=== PATIENT | female | born 1950 | race Asian ===

== ENCOUNTER 2016-03-24 03:17 | Emergency (ER) | payer BC ==
[~2016-03-24] VITALS: Ht 157.5 cm; Wt 53.6 kg
[2016-03-24] MEDS ORDERED: morphine 4 MG/ML VIAL IV STA (03:20)
[2016-03-24] MEDS ORDERED: FAMOTIDINE 20 MG INJ IV STA (03:20)
[2016-03-24] MEDS ORDERED: SOD CHLORIDE 0.9% 1,000 ML IV STA (03:20)
[2016-03-24] MEDS ORDERED: ONDANSETRON 4 MG INJ IV STA (03:20)
[2016-03-24 03:21] VITALS: Ht 157.5 cm; Wt 53.6 kg
[2016-03-24] MEDS ORDERED: LORAZEPAM 2 MG INJ IV ONE (03:30)
[2016-03-24 03:50] LABS: BASOPHILS % 0.3 % (0.0-2.0); EOSINOPHILS % 0.5 % (0.0-7.0); HEMATOCRIT 38.8 % (37.0-47.0); HEMOGLOBIN 13.7 g/dl (12.0-16.0); LYMPHOCYTES # 2.7 10^3/ul (0.8-2.9); LYMPHOCYTES % 29.7 % (15.0-51.0); MEAN CORPUSCULAR HEMOGLOBIN 30.5 pg (29.0-33.0); MEAN CORPUSCULAR HGB CONC 35.3 g/dl (32.0-37.0); MEAN CORPUSCULAR VOLUME 86.5 fl (82.0-101.0); MEAN PLATELET VOLUME 8.1 fl (7.4-10.4); MONOCYTES % 10.5 % (0.0-11.0); NEUTROPHIL # 5.3 10^3/ul (1.6-7.5); PLATELET COUNT 253 10^3/UL (140-440); RED BLOOD COUNT 4.49 10^6/ul (4.20-5.40); RED CELL DISTRIBUTION WIDTH 13.4 % (11.5-14.5)
[2016-03-24 03:51] LABS: CONDITION 1
--- NOTE | 2016-03-24 03:57 | RADRPT ---
PROCEDURE: CHEST - 1 VIEW CLINICAL INDICATION: 66-year-old female with chest pain and flu-like symptoms. TECHNIQUE: A single frontal AP view of the chest was performed portably. The images were reviewed on a PACS workstation. COMPARISON: None. FINDINGS: The cardiomediastinal silhouette is within normal limits. The left lung apex is incompletely visual ized. There is no evidence for an infiltrate. There is no evidence for congestive heart failure. T here is no evidence for pneumothorax. The osseous structures are intact. IMPRESSION: No evidence for active cardiopulmonary disease. .Marcos Greenfield MD, MD Date Time Electronically viewed and signed by .Marcos Greenfield MD, on 03/24/2016 03:57 .Nicolasa/
[2016-03-24 04:13] LABS: ALBUMIN 4.2 g/dl (3.3-4.9)
[2016-03-24 04:14] LABS: POTASSIUM 3.7 mmol/L (3.5-5.1)
[2016-03-24 04:15] LABS: CREATININE 0.78 mg/dl (0.44-1.00)
[2016-03-24 04:16] LABS: ALBUMIN/GLOBULIN RATIO 1.07; BILIRUBIN,INDIRECT 0.4 mg/dl (0-1.1); BILIRUBIN,TOTAL 0.4 mg/dl (0.2-1.3); CALCIUM 9.7 mg/dl (8.4-10.2); TOTAL PROTEIN 8.1 g/dl (6.1-8.1)
--- NOTE | 2016-03-24 04:26 | ERD ---
ER Documentation Chief Complaint Date/Time DATE: 03/24/16 TIME: 04:24 Chief Complaint epigastric pain HPI This is a 66-year-old female who presents to the emergency room for evaluation of abdominal pain, nausea and vomiting. The patient states that she has had these symptoms since November. She states that she is seen multiple urgent cares and has been put on antibiotics. The patient states that she came to the ER today because she has had these symptoms for multiple months and wanted to be evaluated. This patient could not give a detailed history due to her anxiety ROS All systems reviewed and are negative except as per history of present illness. Allergies Allergies: Coded Allergies: aspirin (Verified Allergy, 09/03/11) PMhx/Soc Medical and Surgical Hx: pt denies Surgical Hx History of Surgery: No Anesthesia Reaction: No Hx Neurological Disorder: No Hx Respiratory Disorders: No Hx Cardiac Disorders: No Hx Psychiatric Problems: No Hx Miscellaneous Medical Probl: No (post nasal drip) Hx Alcohol Use: No Hx Substance Use: No Hx Tobacco Use: No Smoking Status: Never smoker Physical Exam Vitals Vital Signs Date Time Temp Pulse Resp B/P Pulse Ox O2 Delivery O2 Flow Rate FiO2 03/24/16 04:17 76 19 103/66 99 Nasal Cannula 3.0 03/24/16 03:46 71 20 131/82 100 Room Air 03/24/16 03:21 98.3 87 18 162/67 99 Physical Exam INITIAL VITAL SIGNS: Reviewed by me GENERAL: The patient is well developed and appropriate for usual state of health in no apparent distress HEENT: Dry mucous membranes, pupils equal, round, and reactive to light. EOMI. There is no scleral icterus. NECK: C-spine is soft and supple, there is no meningismus. There is no cervical lymphadenopathy. LUNGS: Clear to auscultation bilaterally. There are no rales, wheezes or rhonchi. HEART: Regular rate and rhythm, no murmurs, clicks, rubs or gallops. ABDOMEN: Soft, non-tender, non-distended. There are bowel sounds in all four quadrants. No rebound or guarding. EXTREMITIES: There is no peripheral cyanosis or edema. No focal swelling or erythema. NEUROLOGICAL: The patient moves all four extremities with 5/5 strength. Cranial nerves II - XII are intact. Normal gait. Alert and oriented SKIN: There is no apparent rash or petechiae. HEME/LYMPHATIC: There is no evidence of excessive bruising or lymphedema. PSYCHIATRIC: The patient does appear to be extremely anxious Result Diagram: 03/24/16 0330 03/24/16 0330 Results 24 hrs Laboratory Tests Test 03/24/16 03:30 Alanine Aminotransferase (ALT/SGPT) 23IU/L Albumin 4.2g/dl Albumin/Globulin Ratio 1.07 Alkaline Phosphatase 83IU/L Anion Gap 19 Aspartate Amino Transf (AST/SGOT) 36IU/L Basophils # 0.010^3/ul Basophils % 0.3% Blood Urea Nitrogen 17mg/dl Calcium Level 9.7mg/dl Carbon Dioxide Level 22mmol/L Chloride Level 108mmol/L Creatinine 0.78mg/dl Direct Bilirubin 0.00mg/dl Eosinophils # 0.010^3/ul Eosinophils % 0.5% Globulin 3.90g/dl Glucose Level 95mg/dl Hematocrit 38.8% Hemoglobin 13.7g/dl Indirect Bilirubin 0.4mg/dl Lipase 138U/L Lymphocytes # 2.710^3/ul Lymphocytes % 29.7% Mean Corpuscular Hemoglobin 30.5pg Mean Corpuscular Hemoglobin Concent 35.3g/dl Mean Corpuscular Volume 86.5fl Mean Platelet Volume 8.1fl Monocytes # 1.010^3/ul Monocytes % 10.5% Neutrophils # 5.310^3/ul Neutrophils % 59.0% Nucleated Red Blood Cells # 0.010^3/ul Nucleated Red Blood Cells % 0.0/100WBC Platelet Count 84097^3/UL Potassium Level 3.7mmol/L Red Blood Count 4.4910^6/ul Red Cell Distribution Width 13.4% Sodium Level 145mmol/L Total Bilirubin 0.4mg/dl Total Protein 8.1g/dl White Blood Count 9.010^3/ul Current Medications Medications (Trade) Dose Ordered Sig/Cora Route PRN Reason Start Time Stop Time Status Last Admin Dose Admin Sodium Chloride (NS) 1,000 ml @ 1,000 mls/hr Q1H STAT IV 03/24/16 03:20 03/24/16 04:19 DC 03/24/16 03:40 Morphine Sulfate (morphine) 4 mg ONCE STAT IV 03/24/16 03:20 03/24/16 03:22 DC 03/24/16 03:40 Ondansetron HCl (Zofran Inj) 4 mg ONCE STAT IV 03/24/16 03:20 03/24/16 03:22 DC 03/24/16 03:40 Famotidine (Pepcid Iv) 20 mg ONCE STAT IV 03/24/16 03:20 03/24/16 03:22 DC 03/24/16 03:40 Lorazepam (Ativan) 1 mg ONCE ONCE IV 03/24/16 03:30 03/24/16 03:31 DC 03/24/16 03:41 Procedures/MDM EKG: Rate/Rhythm: [Normal Sinus Rhythm] QRS, ST, T-waves: [No changes consistent w/ acute ischemia] Impression: [No evidence of ischemia or arrhythmia] Chest X-ray 1V Interpreted by me: Soft Tissue: No acute abnormalities Bones: No acute abnormalities Mediastinum/Cardiac Silhouette/Lungs: [No acute abnormalities] This is a 66-year-old female who presents to the emergency room for evaluation of abdominal pain. She states she has had abdominal pain since November, she is passing gas normally, and using the restroom normally. She was nauseous and vomited at home today. She states she came to the ER today for evaluation. This patient was extremely anxious on my examination. I did obtain lab work which does not show any acute abnormalities. The patient's pain is controlled with morphine. She was given 1 mg of Ativan for anxiety. The patient has not vomited since being in the emergency room. Her EKG is nonischemic, troponin is normal, chest x-ray is normal. The patient will be discharged home at this time with a prescription for Zofran and referral for gastroenterology for possible EGD for evaluation of constant epigastric abdominal pain Departure Diagnosis: Primary Impression: Abdominal pain Additional Impression: Anxiety Condition: Stable ARISTEO ORANTES DO Mar 24, 2016 04:26
[2016-03-24] MEDS ORDERED: FAMO-18 PO (04:27)
[2016-03-24] MEDS ORDERED: ONDA4TAB8 PO (04:27)
[2016-03-24 04:56] VITALS: BP 108/69; PULSE 74; RESP 16
== END 2016-03-24 05:10 | disposition home or self-care (01) ==
LOC: E/R 03:17
DX: R10.13 Epigastric pain (principal); F41.9 Anxiety disorder, unspecified; R11.2 Nausea with vomiting, unspecified; R40.2142 Coma scale, eyes open, spontaneous, at arrival to emergency department; R40.2252 Coma scale, best verbal response, oriented, at arrival to emergency department; R40.2362 Coma scale, best motor response, obeys commands, at arrival to emergency department
CPT/HCPCS: 36415; 71010; 80053; 83690; 84484; 85025; 96361; 96374; 96375; 99285; J2060; J2270; J2405; J7030; 93005

== ENCOUNTER 2016-12-11 00:24 | Inpatient (IN) | payer BC ==
[~2016-12-11] VITALS: Ht 154.9 cm; Wt 50.0 kg
[~2016-12-11 00:24] MED LIST: FAMO-96 PO; ONDA4TAB8 PO
[2016-12-11] MEDS ORDERED: morphine 4 MG/ML VIAL IV STA ×2 (01:24→02:48)
[2016-12-11] MEDS ORDERED: FAMOTIDINE 20 MG INJ IV STA (01:24)
[2016-12-11] MEDS ORDERED: METOCLOPRAMIDE 10 MG INJ IV STA (01:24)
[2016-12-11] MEDS ORDERED: SOD CHLORIDE 0.9% 1,000 ML IV STA (01:24)
[2016-12-11 01:36] LABS: BASOPHIL # 0.1 10^3/ul (0.0-0.1); BASOPHILS % 0.7 % (0.0-2.0); EOSINOPHILS # 0.1 10^3/ul (0.0-0.5); EOSINOPHILS % 1.7 % (0.0-7.0); HEMOGLOBIN 12.6 g/dl (12.0-16.0); LYMPHOCYTES # 2.8 10^3/ul (0.8-2.9); LYMPHOCYTES % 33.3 % (15.0-51.0); MEAN CORPUSCULAR HEMOGLOBIN 30.4 pg (29.0-33.0); MEAN CORPUSCULAR HGB CONC 34.1 g/dl (32.0-37.0); MEAN CORPUSCULAR VOLUME 89.4 fl (82.0-101.0); MEAN PLATELET VOLUME 10.3 fl (7.4-10.4); MONOCYTE # 0.7 10^3/ul (0.3-0.9); MONOCYTES % 8.2 % (0.0-11.0); NEUTROPHIL # 4.6 10^3/ul (1.6-7.5); NEUTROPHILS % 55.9 % (39.0-77.0); PLATELET COUNT 196 10^3/UL (140-415); RED BLOOD COUNT 4.14 10^6/ul (4.20-5.40); RED CELL DISTRIBUTION WIDTH 13.2 % (11.5-14.5); WHITE BLOOD COUNT 8.3 10^3/ul (4.8-10.8)
[2016-12-11 01:57] LABS: ALANINE AMINOTRANSFERASE 38 IU/L (13-69); ALBUMIN 4.4 g/dl (3.3-4.9); ALBUMIN/GLOBULIN RATIO 1.37; ALKALINE PHOSPHATASE 75 IU/L (42-121); ANION GAP 14 (8-16); ASPARTATE AMINO TRANSFERASE 25 IU/L (15-46); BILIRUBIN,INDIRECT 0.3 mg/dl (0-1.1); BILIRUBIN,TOTAL 0.3 mg/dl (0.2-1.3); BLOOD UREA NITROGEN 23 mg/dl (7-20); CALCIUM 9.7 mg/dl (8.4-10.2); CARBON DIOXIDE 25 mmol/L (21-31); CHLORIDE 108 mmol/L (97-110); CREATININE 0.93 mg/dl (0.44-1.00); GLUCOSE 96 mg/dl (70-220); POTASSIUM 3.7 mmol/L (3.5-5.1); SODIUM 143 mmol/L (135-144); TOTAL PROTEIN 7.6 g/dl (6.1-8.1)
[2016-12-11 02:09] LABS: TROPONIN-I < 0.012 ng/ml (0.00-0.12)
[2016-12-11] MEDS ORDERED: CLIN-73 PO (02:30)
[2016-12-11] MEDS ORDERED: IBUP800T25 PO (02:32)
[2016-12-11] MEDS ORDERED: IBUP200C PO (02:32)
[2016-12-11] MEDS ORDERED: ONDANSETRON 4 MG INJ IV STA (02:48)
[2016-12-11] MEDS ORDERED: LIDOCAINE/MYLANTA 40 ML BTL PO STA (03:03)
[2016-12-11] MEDS ORDERED: LIDOCAINE/MYLANTA 40 ML BTL ONE (03:04)
--- NOTE | 2016-12-11 04:18 | RADRPT ---
PROCEDURE: XR Chest. CLINICAL INDICATION: Chest pain. TECHNIQUE: AP Portable chest. COMPARISON: 03/24/2016 FINDINGS: The cardiomediastinal silhouette is normal.The aortic arch is calcified. No focal consolidation, ple ural effusion or pneumothorax is seen. There is mild thoracic dextroscoliosis. IMPRESSION: No radiographic evidence of acute cardiopulmonary disease. Physician Fernando Date Time Electronically viewed and signed by Aneudy Mancini Physician on 12/11/2016 04:17 CHAPO/
--- NOTE | 2016-12-11 04:28 | RADRPT ---
PROCEDURE: CT of the abdomen and pelvis without contrast CLINICAL INDICATION: Abdominal pain TECHNIQUE: Spiral CT images through the abdomen and pelvis without the use of contrast. The admin istered radiation dose is CTDI 6.19 mGy and DLP 335.94 mGy*cm. Coronal and sagittal reformatted larry ges were submitted. One or more of the following dose reduction techniques were used: automated exp osure control, adjustment of the mA and/or kV according to patient size, or use of iterative reconst ruction technique. COMPARISON: None FINDINGS: Lack of oral and intravenous contrast somewhat limits evaluation. There is mild dependent atelect asis. No pleural or pericardial effusion is seen. Small hiatal hernia is visualized.. The liver, spleen, adrenal glands and pancreas are normal in appearance. There is no evidence of cho lelithiasis or biliary ductal dilatation.. The kidneys are normal in size and contour. There is no evidence of hydronephrosis or nephrolithiasis. Parapelvic left renal cyst is seen. The aorta is norm al in caliber.. There is no evidence for bowel obstruction, free air, or abscess. The appendix is normal in appearance. there is abundant stool in the colon. No adenopathy or ascites is seen. The u terus is atrophic. There are calcified uterine leiomyomas. The bladder is distended. There are dege nerative changes in the spine, severe L5-S1. IMPRESSION: No definite acute abnormality of the abdomen or pelvis. Fecal filled colon. Atrophic uterus with calcified leiomyomas. RPTAT: HCNS Physician Fernando Date Time Electronically viewed and signed by Physician Fernando on 12/11/2016 04:27 /
--- NOTE | 2016-12-11 05:31 | ERD ---
ER Documentation Chief Complaint Date/Time DATE: 12/11/16 TIME: 05:31 Chief Complaint BIBA [id number],c/o dizziness, abd sharp pain HPI 66-year-old female with No significant medical history presenting with complaints of epigastric pain that started last night. The pain is described as sharp, nonradiating, 9 out of 10, associated with nausea and dizziness. She denies associated headache, vision disturbance, focal weakness or numbness. No fevers or chills. No dysuria. She does report recently being seen 1 week ago at an outside hospital for sore throat. They told her to take Advil which she has been taking daily as well as clindamycin which she was prescribed. She denies any hematemesis, hematochezia, or melena. ROS All systems reviewed and are negative except as per history of present illness. Medications Home Meds Active Scripts Famotidine* (Pepcid*) 20 Mg Tablet, 20 MG PO BID for 4 Days, TAB Prov:JOSI TEAGUE MD 12/11/16 Metoclopramide* (Reglan*) 10 Mg Tablet, 10 MG PO Q6 Y for NAUSEA AND/OR VOMITING , #10 TAB Prov:JOSI TEAGUE MD 12/11/16 Ondansetron Hcl* (Zofran*) 4 Mg Tablet, 4 MG PO Q8H Y for NAUSEA AND/OR VOMITING , #15 TAB Prov:ARISTEO ORANTES DO 03/24/16 Reported Medications Clindamycin Hcl* (Clindamycin Hcl*) 300 Mg Capsule, 300 MG PO Q6, CAP 12/11/16 Discontinued Reported Medications Ibuprofen* (Ibuprofen*) 800 Mg Tab, 800 MG PO TID, TAB 12/11/16 Ibuprofen* (Ibuprofen*) 200 Mg Capsule, 200 MG PO QID Y for PAIN, CAP 12/11/16 Discontinued Scripts Famotidine* (Pepcid*) 20 Mg Tablet, 20 MG PO BID for 10 Days, TAB Prov:ARISTEO ORANTES DO 03/24/16 Allergies Allergies: Coded Allergies: No Known Allergy (Unverified , 12/11/16) PMhx/Soc Medical and Surgical Hx: pt denies Medical Hx History of Surgery: No Anesthesia Reaction: No Hx Neurological Disorder: No Hx Respiratory Disorders: No Hx Cardiac Disorders: No Hx Psychiatric Problems: No Hx Miscellaneous Medical Probl: No (post nasal drip) Hx Alcohol Use: No Hx Substance Use: No Hx Tobacco Use: No Smoking Status: Never smoker FmHx Family History: No diabetes Physical Exam Vitals Vital Signs Date Time Temp Pulse Resp B/P Pulse Ox O2 Delivery O2 Flow Rate FiO2 12/11/16 01:05 97.0 85 18 115/64 100 Room Air 12/11/16 00:37 97.0 86 18 127/69 100 Physical Exam Const: Appears to be in distress secondary to pain, nontoxic, well-developed and nourished Head: Atraumatic Eyes: Normal Conjunctiva, PERRLA, EOMI, no nystagmus ENT: Normal External Ears, Nose and Mouth. Neck: Full range of motion..~ No meningismus. Resp: Clear to auscultation bilaterally Cardio: Regular rate and rhythm, no murmurs. 2+ distal pulses. Abd: Soft,Mild epigastric tenderness to palpation, negative Byrne sign, non distended. Normal bowel sounds Skin: No petechiae or rashes Back: No midline or flank tenderness Ext: No cyanosis, or edema Neur: Awake and alert, Oriented 3, cranial nerves intact, strength and sensation is intact in all 4 extremities Psych: Normal Mood and Affect Result Diagram: 12/11/1610212/11/16102 Results 24 hrs Laboratory Tests Test 12/11/16 01:03 White Blood Count 8.310^3/ul Red Blood Count 4.1410^6/ul Hemoglobin 12.6g/dl Hematocrit 37.0% Mean Corpuscular Volume 89.4fl Mean Corpuscular Hemoglobin 30.4pg Mean Corpuscular Hemoglobin Concent 34.1g/dl Red Cell Distribution Width 13.2% Platelet Count 33815^3/UL Mean Platelet Volume 10.3fl Neutrophils % 55.9% Lymphocytes % 33.3% Monocytes % 8.2% Eosinophils % 1.7% Basophils % 0.7% Nucleated Red Blood Cells % 0.0/100WBC Neutrophils # 4.610^3/ul Lymphocytes # 2.810^3/ul Monocytes # 0.710^3/ul Eosinophils # 0.110^3/ul Basophils # 0.110^3/ul Nucleated Red Blood Cells # 0.010^3/ul Sodium Level 143mmol/L Potassium Level 3.7mmol/L Chloride Level 108mmol/L Carbon Dioxide Level 25mmol/L Anion Gap 14 Blood Urea Nitrogen 23mg/dl Creatinine 0.93mg/dl Glucose Level 96mg/dl Calcium Level 9.7mg/dl Total Bilirubin 0.3mg/dl Direct Bilirubin 0.00mg/dl Indirect Bilirubin 0.3mg/dl Aspartate Amino Transf (AST/SGOT) 25IU/L Alanine Aminotransferase (ALT/SGPT) 38IU/L Alkaline Phosphatase 75IU/L Troponin I < 0.012ng/ml Total Protein 7.6g/dl Albumin 4.4g/dl Globulin 3.20g/dl Albumin/Globulin Ratio 1.37 Lipase 144U/L Current Medications Medications (Trade) Dose Ordered Sig/Cora Route PRN Reason Start Time Stop Time Status Last Admin Dose Admin Sodium Chloride (NS) 1,000 ml @ 1,000 mls/hr Q1H STAT IV 12/11/16 01:24 12/11/16 02:23 DC 12/11/16 01:49 Morphine Sulfate (morphine) 4 mg ONCE STAT IV 12/11/16 01:24 12/11/16 01:26 DC 12/11/16 01:49 Metoclopramide HCl (Reglan) 10 mg ONCE STAT IV 12/11/16 01:24 12/11/16 01:26 DC 12/11/16 01:49 Famotidine (Pepcid Iv) 20 mg ONCE STAT IV 12/11/16 01:24 12/11/16 01:26 DC 12/11/16 01:49 Morphine Sulfate (morphine) 4 mg ONCE STAT IV 12/11/16 02:48 12/11/16 02:50 DC 12/11/16 02:55 Ondansetron HCl (Zofran Inj) 4 mg ONCE STAT IV 12/11/16 02:48 12/11/16 02:50 DC 12/11/16 02:55 Miscellaneous Medication (Gi Cocktail (2)) 40 ml ONCE STAT PO 12/11/16 03:03 12/11/16 03:04 DC 12/11/16 03:06 Miscellaneous Medication (Gi Cocktail (2)) 40 ml STK-MED ONCE .ROUTE 12/11/16 03:04 12/11/16 03:05 DC Procedures/MDM EKG: Rate/Rhythm: [Normal Sinus Rhythm] QRS, ST, T-waves: [No changes consistent w/ acute ischemia] Impression: [No evidence of ischemia or arrhythmia] Labs: CBC: unremarkable CMP: Mild elevation in BUN, otherwise unremarkable Lipase: unremarkable Trop wnl Imaging Chest x-ray shows no acute abnormalities CT abdomen and pelvis: IMPRESSION: No definite acute abnormality of the abdomen or pelvis. Fecal filled colon. Atrophic uterus with calcified leiomyomas. Physician Fernando Date Time Electronically viewed and signed by Physician Fernando on 12/11/2016 04: 27 MDM Differential includes but is not limited to biliary colic, biliary obstruction, acute cholecystitis, pancreatitis, hepatitis, lower lobe pneumonia, gastritis, colitis, cardiac pathology, aortic dissection, ureterolithiasis, pyelonephritis. Labs were ordered to evaluate for above and were unremarkable. Chest Xray ordered to evaluate for pneumonia and was read as normal by radiology. CT of the abdomen/pelvis was ordered and showed no acute pathology. I have a low suspicion for aortic dissection or acute coronary syndrome. There is no evidence of perforated viscus. The etiology of her abdominal pain is unclear at this time. I suspect it may be due to the Advil and antibiotic use for the past week. I did review her medical records and it seems like she has been here multiple times in the past for similar pain. She was told to follow-up for an endoscopy with her primary care doctor, but it does not seem like the patient has done this. I have given the patient IV fluids and multiple doses of pain medications and antiemetics with minimal relief. She was p.o. challenged and had persistent vomiting. At this time I do not think the patient is stable for discharge and will require observation for treatment of her symptoms until she is able to tolerate fluids by mouth. Accepting Care Team: Current data and ongoing care discussed. Time: Time of admission Primary Provider: Ramana Consulting: None Outstanding Data: none Departure Diagnosis: Primary Impression: Epigastric abdominal pain Additional Impressions: Dizziness Intractable abdominal pain Condition: Stable EKJOSI MARMOLEJO MD Dec 11, 2016 05:31
[2016-12-11] MEDS ORDERED: FAMO-96 PO (05:33)
[2016-12-11] MEDS ORDERED: METO10TA92 PO (05:33)
[2016-12-11] MEDS ORDERED: ACETAMINOPHEN 325 MG TAB PO PRN ×2 (06:30→09:30)
[2016-12-11] MEDS ORDERED: ONDANSETRON 4 MG INJ IV PRN (06:30)
[2016-12-11 08:01] VITALS: TEMP 98.1
[2016-12-11 08:25] VITALS: BP 119/61; RESP 18
[2016-12-11] MEDS ORDERED: DOCUSATE SODIUM 100 MG CAP PO PRN (09:30)
[2016-12-11] MEDS ORDERED: NACL 0.9% 3 ML SYG IV SCH (09:30)
[2016-12-11] MEDS ORDERED: ONDANSETRON 4 MG TAB PO PRN ×2 (09:30)
[2016-12-11] MEDS ORDERED: MAGNESIUM HYDROXIDE 30ML CUP PO PRN (09:30)
[2016-12-11] MEDS ORDERED: BISACODYL 10 MG SUPP PR PRN (09:30)
[2016-12-11] MEDS ORDERED: HYDROCODONE/APAP (5/325) TAB PO PRN (09:30)
[2016-12-11] MEDS ORDERED: BISACODYL (EC) 5 MG TAB PO PRN (09:30)
[2016-12-11] MEDS ORDERED: METOCLOPRAMIDE 10 MG TAB PO PRN (10:00)
[2016-12-11] MEDS: morphine 2 MG INJ IV PRN ×3 (10:25→20:58)
[2016-12-11 10:37] VITALS: Ht 154.9 cm; Wt 50.0 kg
[2016-12-11] MEDS: ONDANSETRON 4 MG INJ IV PRN ×2 (11:27→20:43)
[2016-12-11 14:15] VITALS: BP 126/59; RESP 16
[2016-12-11] MEDS: METOCLOPRAMIDE 10 MG INJ IV PRN (14:17)
[2016-12-11] MEDS: SOD CHLORIDE 0.9% 1,000 ML IV SCH (14:25)
--- NOTE | 2016-12-11 15:26 | HP ---
Date/Time of Note Date/Time of Note DATE: 12/11/16 TIME: 15:19 Assessment/Plan VTE Prophylaxis VTE Prophylaxis Intervention: SCD's Lines/Catheters IV Catheter Type (from Nrsg): Saline Lock Urinary Cath still in place: No Assessment/Plan Assessment/Plan 66 yo F with chronic abd pain, ?h/o gastric ulcers? here for abd pain. Suspect gastric pathology-->etio unclear. PLAN GI eval for EGD start PPI HPI/ROS Admit Date/Time Admit Date/Time Dec 11, 2016 at 13:00 Hx of Present Illness CC abd pain x 30 years HPI 66 yo F with pmhx chronic abd pain 2/2 "ulcers from stress" presents with abd pain and dizziness. Pt reports extensive hx of chronic abd pain. States she has seen GIs previously and been diagnosis with stomach ulcers/erosions. Takes PPI PRN. Last week had a sore throat and went to an [facility] where she was given NSAIDs, abx and nasal spray. Took a few days off working out then attempted to exercise yesterday. After spending some time with a swimming machine reports she felt lightheaded. 10p ROS neg except as per HPI PMHx: chronic abd pain PMH/Family/Social Social History lives in the community, employed Smoking Status: Never smoker Exam/Review of Systems Vital Signs Vitals Vital Signs Date Time Temp Pulse Resp B/P Pulse Ox O2 Delivery O2 Flow Rate FiO2 12/11/16 14:15 98.0 63 16 126/59 99 12/11/16 08:01 Room Air Exam Exam anxious MMM EOMI no mrg lungs clear abd soft no rashes no edema hbg 12s Additional Comments imaging results reviewed Labs Result Diagram: 12/11/1610212/11/16102 Medications Medications Current Medications Metoclopramide HCl (Reglan) 10 mg Q6H PRN PO NAUSEA AND/OR VOMITING; Start at 10:00 Ondansetron HCl (Zofran Tab) 4 mg Q6H PRN PO NAUSEA AND/OR VOMITING; Start at 09:30 Ondansetron HCl (Zofran Inj) 4 mg Q6H PRN IV NAUSEA AND/OR VOMITING Last administered on 12/11/16t 11:27; Admin Dose 4 MG; Start 12/11/16 at 09:30 Metoclopramide HCl (Reglan) 10 mg Q6H PRN IV NAUSEA AND/OR VOMITING Last administered on 12/11/16 14:17; Admin Dose 10 MG; Start 12/11/16 at 09:30 Acetaminophen (Tylenol Tab) 650 mg Q6H PRN PO PAIN LEVEL 1-3 OR FEVER; Start 12/11/16 at 09:30 Acetaminophen/ Hydrocodone Bitart ([place] (5/325)) 1 tab Q6H PRN PO MODERATE PAIN LEVEL 4-6; Start 12/11/16 at 09:30 Morphine Sulfate (morphine) 2 mg Q4H PRN IV SEVERE PAIN LEVEL 7-10 Last administered on 12/11/16 10:25; Admin Dose 2 MG; Start 12/11/16 at 09:30 Docusate Sodium (Colace) 100 mg Q12H PRN PO CONSTIPATION; Start 12/11/16 at 09 :30 Magnesium Hydroxide (Milk Of Mag) 30 ml DAILY PRN PO CONSTIPATION; Start 12/11 at 09:30 Bisacodyl (Dulcolax) 5 mg DAILY PRN PO CONSTIPATION; Start 12/11/16 at 09:30 Bisacodyl 10 mg 10 mg DAILY PRN LA CONSTIPATION; Start 12/11/16 at 09:30 Sodium Chloride (NS) 1,000 ml @ 50 mls/hr Q20H IV Last administered on 14:25; Admin Dose 50 MLS/HR; Start 12/11/16 at 14:30 Simethicone (Mylicon) 80 mg Q6H PRN PO HEARTBURN; Start 12/11/16 at 15:30 ULYSSES DUMONT MD Dec 11, 2016 15:26
--- NOTE | 2016-12-11 16:40 | CONS ---
Date/Time of Note Date/Time of Note DATE: 12/11/16 TIME: 16:13 Assessment/Plan Assessment/Plan Chief Complaint/Hosp Course Summary Assessment and Plan: Assessmentt: Epigastric pain PUD vs Gastritis Mild anemia r/o upper GI bleed Lightheadedness/improved Plan: EGD tomorrow N.p.o. after midnight Endoscopy - risks/benefits/alternatives/indications of procedure and sedation/ anesthesia discussed with patient who states understanding and gives informed consent to proceed. Questions were answered. Continue PPI Patient seen in collaboration with Dr. Pino Chief Complaint/Reason for Visit: Chronic abdominal pain History of Present Illness: This is a 66-year-old female admitted to the hospital with abdominal pain and lightheadedness. She was recently started on antibiotics and NSAIDs for sore throat. Shortly after starting therapy patient complained of severe abdominal pain. She also complains of significant stress and thinks it may be adding to the abdominal pain. She notes extensive history of abdominal pain on and off for the past 30 years. Her last EGD/colonoscopy was about 5 years ago showing erosive gastritis. She not remember results of colonoscopy, although notes a remote hx of polyps.. She denies hematemesis, pyrosis, vomiting, unintentional weight loss, change in bowel habits, or rectal bleeding. She does have a family history of Colon cancer i.e brother. With current presentation, will proceed with EGD to rule out other possible etiology for abdominal pain including PUD vs H. pylori infection vs gastritis. Patient verbalizes understanding and is agreeable to EGD Past Medical History: GERD? Erosive gastritis Allergies: No known allergies Family History: Colon cancer i.e. brother Diabetes i.e. father Social History: Denies ETOH Denies smoking Denies drug use Problems: Consultation Date/Type/Reason Admit Date/Time Dec 11, 2016 at 13:00 Date of Consultation: Dec 11, 2016 (GI) Type of Consultation: GI Reason for Consultation Abdominal pain History of gastric erosion Constitutional: no complaints Eyes: no complaints ENT: other (PND) Respiratory: no complaints Cardiovascular: no complaints Gastrointestinal: pain, No blood, No constipation, No decreased appetite, No diarrhea, No flatus, No nausea, No vomiting Genitourinary: no complaints Musculoskeletal: no complaints Skin: no complaints Neurologic: no complaints, other (light headedness) Endocrine: no complaints Lymphatic: no complaints Psychological: no complaints Past Medical History GERD? Gastric erosion Past Surgical History Past Surgical Hx: no surgical history Family History Significant Family History: cancer (Colon cancer i.e. brother), diabetes ( father) Social History Alcohol Use: none Smoking Status: Never smoker Drug Use: none Exam/Review of Systems Vital Signs Vitals Vital Signs Date Time Temp Pulse Resp B/P Pulse Ox O2 Delivery O2 Flow Rate FiO2 12/11/16 14:15 98.0 63 16 126/59 99 12/11/16 08:01 Room Air Exam Constitutional: alert, oriented Psych: other (increased stress) Head: atraumatic, normocephalic ENMT: nl external ears & nose, nl lips & teeth Neck: non-tender, supple Respiratory: clear to auscultation Cardiovascular: regular rate and rhythm Gastrointestinal: bowel sounds, nl liver, spleen, soft, tender (epigastric), No ascites, No distended, No firm, No hepatomegaly, No mass, No rebound or guarding, No splenomegaly, No surgical scars Genitourinary - Female: nl external genitalia Extremities: normal pulses Skin: nl turgor Results Result Diagram: 12/11/1610212/11/16102 Results 24 hrs Laboratory Tests Test 12/11/16 01:03 White Blood Count 8.3 Red Blood Count 4.14 L Hemoglobin 12.6 Hematocrit 37.0 Mean Corpuscular Volume 89.4 Mean Corpuscular Hemoglobin 30.4 Mean Corpuscular Hemoglobin Concent 34.1 Red Cell Distribution Width 13.2 Platelet Count 196 Mean Platelet Volume 10.3 # Neutrophils % 55.9 Lymphocytes % 33.3 Monocytes % 8.2 Eosinophils % 1.7 Basophils % 0.7 Nucleated Red Blood Cells % 0.0 Neutrophils # 4.6 Lymphocytes # 2.8 Monocytes # 0.7 Eosinophils # 0.1 Basophils # 0.1 Nucleated Red Blood Cells # 0.0 Sodium Level 143 Potassium Level 3.7 Chloride Level 108 Carbon Dioxide Level 25 Anion Gap 14 Blood Urea Nitrogen 23 H Creatinine 0.93 Glucose Level 96 Calcium Level 9.7 Total Bilirubin 0.3 Direct Bilirubin 0.00 Indirect Bilirubin 0.3 Aspartate Amino Transf (AST/SGOT) 25 Alanine Aminotransferase (ALT/SGPT) 38 Alkaline Phosphatase 75 Troponin I < 0.012 Total Protein 7.6 Albumin 4.4 Globulin 3.20 Albumin/Globulin Ratio 1.37 Lipase 144 Medications Medications Current Medications Metoclopramide HCl (Reglan) 10 mg Q6H PRN PO NAUSEA AND/OR VOMITING; Start at 10:00 Ondansetron HCl (Zofran Tab) 4 mg Q6H PRN PO NAUSEA AND/OR VOMITING; Start at 09:30 Ondansetron HCl (Zofran Inj) 4 mg Q6H PRN IV NAUSEA AND/OR VOMITING Last administered on 12/11/16 11:27; Admin Dose 4 MG; Start 12/11/16 at 09:30 Metoclopramide HCl (Reglan) 10 mg Q6H PRN IV NAUSEA AND/OR VOMITING Last administered on 12/11/16 14:17; Admin Dose 10 MG; Start 12/11/16 at 09:30 Acetaminophen (Tylenol Tab) 650 mg Q6H PRN PO PAIN LEVEL 1-3 OR FEVER; Start 12/11/16 at 09:30 Acetaminophen/ Hydrocodone Bitart ([place] (5/325)) 1 tab Q6H PRN PO MODERATE PAIN LEVEL 4-6; Start 12/11/16 at 09:30 Morphine Sulfate (morphine) 2 mg Q4H PRN IV SEVERE PAIN LEVEL 7-10 Last administered on 12/11/16 15:22; Admin Dose 2 MG; Start 12/11/16 at 09:30 Docusate Sodium (Colace) 100 mg Q12H PRN PO CONSTIPATION; Start 12/11/16 at 09 :30 Magnesium Hydroxide (Milk Of Mag) 30 ml DAILY PRN PO CONSTIPATION; Start 12/11 at 09:30 Bisacodyl (Dulcolax) 5 mg DAILY PRN PO CONSTIPATION; Start 12/11/16 at 09:30 Bisacodyl 10 mg 10 mg DAILY PRN ND CONSTIPATION; Start 12/11/16 at 09:30 Sodium Chloride (NS) 1,000 ml @ 50 mls/hr Q20H IV Last administered on 14:25; Admin Dose 50 MLS/HR; Start 12/11/16 at 14:30 Simethicone (Mylicon) 80 mg Q6H PRN PO HEARTBURN; Start 12/11/16 at 15:30 Pantoprazole (Protonix Tab) 40 mg BID@06,18 PO ; Start 12/11/16 at 18:00 Copies To: CC: NICKY PINO MD, VICTORIA Dec 11, 2016 16:33
[2016-12-11] MEDS: PANTOPRAZOLE (EC) 40 MG TAB PO SCH (18:37)
[2016-12-11 20:57] VITALS: BP 102/59; RESP 18
[2016-12-12] VITALS (11 sets, daily range): BP systolic 95–118; BP diastolic 50–66; PULSE 68–74; RESP 11–21
[2016-12-12] MEDS: METOCLOPRAMIDE 10 MG INJ IV PRN (00:55)
[2016-12-12] MEDS: morphine 2 MG INJ IV PRN ×2 (00:59→19:58)
[2016-12-12] MEDS: PANTOPRAZOLE (EC) 40 MG TAB PO SCH ×3 (05:13→17:44)
[2016-12-12 06:43] LABS: BASOPHILS % 0.4 % (0.0-2.0); EOSINOPHILS % 0.2 % (0.0-7.0); LYMPHOCYTES # 2.4 10^3/ul (0.8-2.9); MEAN CORPUSCULAR HEMOGLOBIN 29.3 pg (29.0-33.0); MEAN CORPUSCULAR HGB CONC 32.4 g/dl (32.0-37.0); MEAN CORPUSCULAR VOLUME 90.4 fl (82.0-101.0); MEAN PLATELET VOLUME 10.5 fl (7.4-10.4); MONOCYTE # 0.5 10^3/ul (0.3-0.9); NEUTROPHIL # 6.1 10^3/ul (1.6-7.5); NEUTROPHILS % 67.2 % (39.0-77.0); PLATELET COUNT 178 10^3/UL (140-415); RED BLOOD COUNT 3.76 10^6/ul (4.20-5.40); RED CELL DISTRIBUTION WIDTH 13.4 % (11.5-14.5); WHITE BLOOD COUNT 9.1 10^3/ul (4.8-10.8)
[2016-12-12] MEDS: SOD CHLORIDE 0.9% 1,000 ML IV SCH (08:25)
[2016-12-12 13:28] LABS: ADD UMIC YES; UR ASCORBIC ACID NEGATIVE (NEGATIVE); UR BILIRUBIN (Dip) NEGATIVE (NEGATIVE); UR BLOOD (Dip) 1+ mg/dL (NEGATIVE); UR CLARITY CLEAR (CLEAR); UR COLOR YELLOW (YELLOW); UR GLUCOSE (Dip) NEGATIVE (NEGATIVE); UR KETONES (Dip) TRACE mg/dL (NEGATIVE); UR LEUKOCYTE ESTERASE (Dip) NEGATIVE Leu/ul (NEGATIVE); UR NITRITE (Dip) NEGATIVE (NEGATIVE); UR RBC 2 /HPF (0-5); UR SPECIFIC GRAVITY (Dip) 1.023 (1.003-1.030); UR TOTAL PROTEIN (Dip) NEGATIVE (NEGATIVE); UR UROBILINOGEN (Dip) NEGATIVE (NEGATIVE)
--- NOTE | 2016-12-12 16:07 | PN ---
Date/Time of Note Date/Time of Note DATE: 12/12/16 TIME: 16:04 Assessment/Plan VTE Prophylaxis VTE Prophylaxis Intervention: SCD's Lines/Catheters IV Catheter Type (from Nrsg): Peripheral IV Urinary Cath still in place: No Assessment/Plan Assessment/Plan 66 yo F with chronic abd pain, ?h/o gastric ulcers? here for abd pain. Suspect gastric pathology-->etio unclear. 2. Intractable abdominal pain 3. Persistent dizziness 4. dysuria PLAN IV PPI IV reglan prn IVF NS IV pain meds morphine for better pain control GI consulted, plan for EGD today at 7 pm check UA since pt c/o foul smelling urine SCD For DVT prophylaxis Subjective 24 Hr Interval Summary Free Text/Dictation still c/o abdominal pain, C/o dizziness, BP stable, afebrile Subjective hx not possible: other (dizziness) Gastrointestinal: decreased appetite, nausea, pain Exam/Review of Systems Vital Signs Vitals Vital Signs Date Time Temp Pulse Resp B/P Pulse Ox O2 Delivery O2 Flow Rate FiO2 12/12/16 14:00 98.6 64 18 114/62 95 12/11/16 08:01 Room Air Intake and Output 12/11/16 12/11/16 12/12/16 15:00 23:00 07:00 Intake Total 200 ml 600 ml Output Total 200 ml Balance 0 ml 600 ml Exam Constitutional: alert Psych: no complaints Head: normocephalic Eyes: nl conjunctiva ENMT: nl external ears & nose Neck: non-tender, supple Respiratory: clear to auscultation, diminished breath sounds, normal air movement Cardiovascular: nl pulses, regular rate and rhythm Gastrointestinal: soft, tender (TTP to epigastrium, no rebound/ no tenderness ) Musculoskeletal: muscle weakness, nl extremities to inspection, nl gait and stance Extremities: normal pulses Neurological: [employer] II-XII intact, nl mental status, nl speech, nl strength Results Result Diagram: 12/12/16 0558 12/11/16 0103 Results 24 hrs Laboratory Tests Test 12/12/16 05:58 12/12/16 12:30 White Blood Count 9.1 Red Blood Count 3.76 L Hemoglobin 11.0 L Hematocrit 34.0 L Mean Corpuscular Volume 90.4 Mean Corpuscular Hemoglobin 29.3 Mean Corpuscular Hemoglobin Concent 32.4 Red Cell Distribution Width 13.4 Platelet Count 178 Mean Platelet Volume 10.5 H Neutrophils % 67.2 Lymphocytes % 26.0 Monocytes % 6.0 Eosinophils % 0.2 Basophils % 0.4 Nucleated Red Blood Cells % 0.0 Neutrophils # 6.1 Lymphocytes # 2.4 Monocytes # 0.5 Eosinophils # 0.0 Basophils # 0.0 Nucleated Red Blood Cells # 0.0 Urine Color YELLOW Urine Clarity CLEAR Urine pH 5.0 Urine Specific [place] 1.023 Urine Ketones TRACE A Urine Nitrite NEGATIVE Urine Bilirubin NEGATIVE Urine Urobilinogen NEGATIVE Urine Leukocyte Esterase NEGATIVE Urine Microscopic RBC 2 Urine Microscopic WBC 1 Urine Hemoglobin 1+ H Urine Glucose NEGATIVE Urine Total Protein NEGATIVE Medications Medications Current Medications Metoclopramide HCl (Reglan) 10 mg Q6H PRN PO NAUSEA AND/OR VOMITING; Start at 10:00 Ondansetron HCl (Zofran Tab) 4 mg Q6H PRN PO NAUSEA AND/OR VOMITING; Start at 09:30 Ondansetron HCl (Zofran Inj) 4 mg Q6H PRN IV NAUSEA AND/OR VOMITING Last administered on 12/11/16 20:43; Admin Dose 4 MG; Start 12/11/16 at 09:30 Metoclopramide HCl (Reglan) 10 mg Q6H PRN IV NAUSEA AND/OR VOMITING Last administered on 12/12/16 00:55; Admin Dose 10 MG; Start 12/11/16 at 09:30 Acetaminophen (Tylenol Tab) 650 mg Q6H PRN PO PAIN LEVEL 1-3 OR FEVER; Start 12/11/16 at 09:30 Acetaminophen/ Hydrocodone Bitart ([place] (5/325)) 1 tab Q6H PRN PO MODERATE PAIN LEVEL 4-6; Start 12/11/16 at 09:30 Morphine Sulfate (morphine) 2 mg Q4H PRN IV SEVERE PAIN LEVEL 7-10 Last administered on 12/12/16 00:59; Admin Dose 2 MG; Start 12/11/16 at 09:30 Docusate Sodium (Colace) 100 mg Q12H PRN PO CONSTIPATION; Start 12/11/16 at 09 :30 Magnesium Hydroxide (Milk Of Mag) 30 ml DAILY PRN PO CONSTIPATION; Start 12/11 at 09:30 Bisacodyl (Dulcolax) 5 mg DAILY PRN PO CONSTIPATION; Start 12/11/16 at 09:30 Bisacodyl 10 mg 10 mg DAILY PRN [place] CONSTIPATION; Start 12/11/16 at 09:30 Sodium Chloride (NS) 1,000 ml @ 50 mls/hr Q20H IV Last administered on 08:25; Admin Dose 50 MLS/HR; Start 12/11/16 at 14:30 Simethicone (Mylicon) 80 mg Q6H PRN PO HEARTBURN Last administered on 08:30; Admin Dose 80 MG; Start 12/11/16 at 15:30 Pantoprazole (Protonix Tab) 40 mg BID@06,18 PO Last administered on 12/11/16 18:37; Admin Dose 40 MG; Start 12/11/16 at 18:00 ROSALINE DEJESUS MD Dec 12, 2016 16:07
[2016-12-12] MEDS ORDERED: PROPOFOL 40 ML ONE (16:17)
[2016-12-12] MEDS ORDERED: MECLIZINE 25 MG TAB PO PRN (16:30)
--- NOTE | 2016-12-12 16:37 | OPPN ---
Date/Time of Note Date/Time of Note DATE: 12/12/16 TIME: 16:30 Proc Note GI Procedure Date 12/12/16 Indication: other (Epigastric abdominal pain) Pre-procedure Diagnosis Epigastric abdominal pain Post-procedure Diagnosis Impression: 10 mm linear distal esophageal ulceration. Benign endoscopic appearance. Small hiatal hernia. Moderate gastritis. Rule out H. pylori infection. Biopsies obtained. Plan: Protonix 40 mg twice daily. Advance diet as tolerated. Review pathology as soon as available. Follow-up EGD in 8 weeks to assess healing of esophageal ulcer. . Procedure Performed: Endoscopy (With biopsies) Surgeon NICKY MENARD MD See signature line [employer]bags none Anesthesia Type: MAC Anesthesiologist: MATHEW GALLAGHER DO Tourniquet Time none EBL none Transfusion required none Biopsy 1: Gastric body and antrum. Rule out interval infection. Grafts/Implants none Tubes/Drains none Complication(s) none Disposition: home Procedure Description Preoperative Diagnosis: After informed consent, with the patient/relatives understanding the procedure, its indications, potential risks and complications, including but not limited to : allergic reaction, bleeding, perforation or infection, and after all pertinent questions were answered to the patients satisfaction, the patient/ relatives signed witnessed informed consent. Following this, premedication was administered slowly IV push under careful cardiovascular and respiratory monitoring with pulse oximetry, automatic blood pressure, and patient monitor. Once the sedative effect was achieved the patient was place in the left lateral decubitus, the panendoscope was introduced and advanced under visual control. Careful examination of the upper gastrointestinal tract, both on insertion as well as withdrawal of the instrument disclosing the following findings: ESOPHAGUS: the mucosa of the entire esophagus was carefully examined and showed the following findings: There is a 10 mm linear deep ulceration distal esophagus. Benign endoscopic appearance. No biopsies obtained due to significant friability in the area. Otherwise the mucosa appears within normal limits. There is no evidence of varices, neoplasm, or stricture. Small hiatal Hernia identified. STOMACH: Upon entrance to the stomach air was insufflated, the gastric ellison distended normally. The mucosa of the fundus, body and antrum of the stomach was carefully examined both head-on and on retroflexion, and showed the following findings: There is moderate erythema and edema in the mucosa of the body and antrum the stomach. Biopsies were obtained to rule out H. pylori infection. Otherwise the mucosa appears within normal limits with no abnormalities. There is no evidence of ulcers or neoplasm. PYLORUS: The pylorus was carefully examined and showed the following findings: the pylorus appears patent and within normal limits, with no evidence of gastric outlet obstruction. DUODENUM: The duodenal mucosa was carefully examined in the duodenal bulb as well as the second portion of the duodenum and showed the following findings: the mucosa appears unremarkable with no evidence of duodenitis, ulcer or neoplasm. Copies To: CC: NICKY MENARD MD, MORDO MD Dec 12, 2016 16:37
[2016-12-12] MEDS: SUCRALFATE (100 MG/ML) 10ML CUP PO SCH ×2 (17:44→20:49)
[2016-12-12] MEDS: METOCLOPRAMIDE 10 MG INJ IV SCH (20:49)
[2016-12-13 02:21] VITALS: BP 98/51; RESP 18
[2016-12-13] MEDS: METOCLOPRAMIDE 10 MG INJ IV SCH ×2 (03:31→08:22)
[2016-12-13] MEDS: PANTOPRAZOLE (EC) 40 MG TAB PO SCH (05:28)
[2016-12-13 06:33] LABS: BASOPHIL # 0.1 10^3/ul (0.0-0.1); BASOPHILS % 0.6 % (0.0-2.0); EOSINOPHILS % 0.5 % (0.0-7.0); HEMATOCRIT 35.2 % (37.0-47.0); HEMOGLOBIN 11.5 g/dl (12.0-16.0); LYMPHOCYTES # 2.4 10^3/ul (0.8-2.9); LYMPHOCYTES % 27.2 % (15.0-51.0); MEAN CORPUSCULAR HEMOGLOBIN 29.3 pg (29.0-33.0); MEAN CORPUSCULAR HGB CONC 32.7 g/dl (32.0-37.0); MEAN CORPUSCULAR VOLUME 89.8 fl (82.0-101.0); MEAN PLATELET VOLUME 10.4 fl (7.4-10.4); MONOCYTE # 0.7 10^3/ul (0.3-0.9); MONOCYTES % 8.1 % (0.0-11.0); NEUTROPHIL # 5.6 10^3/ul (1.6-7.5); NEUTROPHILS % 63.4 % (39.0-77.0); PLATELET COUNT 172 10^3/UL (140-415); RED BLOOD COUNT 3.92 10^6/ul (4.20-5.40); RED CELL DISTRIBUTION WIDTH 13.2 % (11.5-14.5); WHITE BLOOD COUNT 8.8 10^3/ul (4.8-10.8)
[2016-12-13 07:01] LABS: INR 0.96; PROTIME 12.8 Sec (12.2-14.2)
[2016-12-13 07:02] LABS: PARTIAL THROMBOPLASTIN TIME 27.8 Sec (25.0-35.0)
[2016-12-13] MEDS: SOD CHLORIDE 0.9% 1,000 ML IV SCH (07:08)
[2016-12-13 07:14] LABS: ALBUMIN 3.3 g/dl (3.3-4.9); ALBUMIN/GLOBULIN RATIO 1.13; BILIRUBIN,INDIRECT 0.4 mg/dl (0-1.1); BILIRUBIN,TOTAL 0.4 mg/dl (0.2-1.3); CALCIUM 8.6 mg/dl (8.4-10.2); CREATININE 0.85 mg/dl (0.44-1.00); POTASSIUM 3.8 mmol/L (3.5-5.1); TOTAL PROTEIN 6.2 g/dl (6.1-8.1)
[2016-12-13 08:00] VITALS: BP 116/58; RESP 20
[2016-12-13] MEDS: SUCRALFATE (100 MG/ML) 10ML CUP PO SCH (08:21)
--- NOTE | 2016-12-13 10:48 | PDOCDIS ---
Discharge Instructions CONDITION Patient Condition: Good HOME CARE INSTRUCTIONS: Special Diet: regular diet, avoid spicy food until ulcer heals ACTIVITY: Activity Restrictions: Slowly Increase Activity Rest between Activity Avoid heavy lifting Avoid Heavy Housework FOLLOW UP/APPOINTMENTS Follow-up Plan FOLLOW UP WITH HER OWN PMD IN 1-2 WEEK AFTER DISCHARGE( IF NO PMD THEN SHE CAN CHECK WITH OFFICE IF INSURANCE ACCEPTED AND FOLLOW UP OVER THERE),. FOLLOW UP WITH GI OUTPATIENT AFTER 2 WEEKS ROSALINE DEJESUS MD Dec 13, 2016 10:48
[2016-12-13] MEDS ORDERED: MECL-77 PO (10:50)
[2016-12-13] MEDS ORDERED: METO10TA92 PO (10:50)
[2016-12-13] MEDS ORDERED: PANT40TA4 PO (10:50)
[2016-12-13] MEDS ORDERED: CARAS PO (10:50)
--- NOTE | 2016-12-14 18:55 | DS ---
Date/Time of Note Date/Time of Note DATE: 12/14/16 TIME: 18:55 Discharge Summary Admission/Discharge Info Admit Date/Time Dec 11, 2016 at 13:00 Discharge Date/Time Dec 13, 2016 at 12:10 Hx of Present Illness CC abd pain x 30 years HPI 66 yo F with pmhx chronic abd pain 2/2 "ulcers from stress" presents with abd pain and dizziness. Pt reports extensive hx of chronic abd pain. States she has seen GIs previously and been diagnosis with stomach ulcers/erosions. Takes PPI PRN. Last week had a sore throat [place] [facility] [place], abx and nasal spray. Took a few days off working out then attempted to exercise yesterday. After spending some time with a swimming machine reports she felt lightheaded. 10p ROS neg except as per HPI PMHx: chronic abd pain Hospital Course Summary Assessment and Plan: Assessmentt: Epigastric pain PUD vs Gastritis Mild anemia r/o upper GI bleed Lightheadedness/improved Plan: EGD tomorrow N.p.o. after midnight Endoscopy - risks/benefits/alternatives/indications of procedure and sedation/ anesthesia discussed with patient who states understanding and gives informed consent to proceed. Questions were answered. Continue PPI Patient seen in collaboration with Dr. Pino Chief Complaint/Reason for Visit: Chronic abdominal pain History of Present Illness: This is a 66-year-old female admitted to the hospital with abdominal pain and lightheadedness. She was recently started on antibiotics and NSAIDs for sore throat. Shortly after starting therapy patient complained of severe abdominal pain. She also complains of significant stress and thinks it may be adding to the abdominal pain. She notes extensive history of abdominal pain on and off for the past 30 years. Her last EGD/colonoscopy was about 5 years ago showing erosive gastritis. She not remember results of colonoscopy, although notes a remote hx of polyps.. She denies hematemesis, pyrosis, vomiting, unintentional weight loss, change in bowel habits, or rectal bleeding. She does have a family history of Colon cancer i.e brother. With current presentation, will proceed with EGD to rule out other possible etiology for abdominal pain including PUD vs H. pylori infection vs gastritis. Patient verbalizes understanding and is agreeable to EGD Past Medical History: GERD? Erosive gastritis Allergies: No known allergies Family History: Colon cancer i.e. brother Diabetes i.e. father Social History: Denies ETOH Denies smoking Denies drug use Home Meds Active Scripts Sucralfate* (Carafate*) 1 Gm/10 Ml Susp, 1 GM PO QID for 60 Days, #240 ML Prov:ROSALINE DEJESUS MD 12/13/16 Pantoprazole* (Pantoprazole*) 40 Mg Tablet.dr, 40 MG PO BID@,18, #120 TAB Prov:ROSALINE DEJESUS MD 12/13/16 Meclizine Hcl* (Meclizine Hcl*) 25 Mg Tablet, 25 MG PO TID Y for Dizziness , # 30 TAB Prov:ROSALINE DEJESUS MD 12/13/16 Metoclopramide* (Reglan*) 10 Mg Tablet, 10 MG PO Q6 Y for NAUSEA AND/OR VOMITING , #30 TAB Prov:ROSALINE DEJESUS MD 12/13/16 Discontinued Reported Medications Clindamycin Hcl* (Clindamycin Hcl*) 300 Mg Capsule, 300 MG PO Q6, CAP 12/11/16 Ibuprofen* (Ibuprofen*) 800 Mg Tab, 800 MG PO TID, TAB 12/11/16 Ibuprofen* (Ibuprofen*) 200 Mg Capsule, 200 MG PO QID Y for PAIN, CAP 12/11/16 Discontinued Scripts Famotidine* (Pepcid*) 20 Mg Tablet, 20 MG PO BID for 4 Days, TAB Prov:JOSI TEAGUE MD 12/11/16 Ondansetron Hcl* (Zofran*) 4 Mg Tablet, 4 MG PO Q8H Y for NAUSEA AND/OR VOMITING , #15 TAB Prov:ARISTEO ORANTES DO 03/24/16 Famotidine* (Pepcid*) 20 Mg Tablet, 20 MG PO BID for 10 Days, TAB Prov:ARISTEO ORANTES DO 03/24/16 Follow-up Plan FOLLOW UP WITH HER OWN PMD IN 1-2 WEEK AFTER DISCHARGE( IF NO PMD THEN SHE CAN CHECK WITH OFFICE IF INSURANCE ACCEPTED AND FOLLOW UP OVER THERE),. FOLLOW UP WITH GI OUTPATIENT AFTER 2 WEEKS Primary Care Provider Not On Staff Doctor ROSALINE DEJESUS MD Dec 14, 2016 18:55
== END 2016-12-13 12:10 | disposition home or self-care (01) | DRG 392 ==
LOC: E/R 00:24 → PP2 06:18 → OBSVTOIN 13:00
PROVIDERS: ADMIT Family Medicine; ATTEND Family Medicine
PROC: 0DB78ZX Excision of Stomach, Pylorus, Via Natural or Artificial Opening Endoscopic, Diagnostic (ICD-10-PCS; principal; 2016-12-12 19:30)
DX: R10.13 Epigastric pain (principal); K22.10 Ulcer of esophagus without bleeding; K29.70 Gastritis, unspecified, without bleeding; K44.9 Diaphragmatic hernia without obstruction or gangrene; R42 Dizziness and giddiness; R30.0 Dysuria; D64.9 Anemia, unspecified; Z80.0 Family history of malignant neoplasm of digestive organs
CPT/HCPCS: 71010; 74176; 80053; 81001; 83690; 84484; 85025; 85610; 85730; 93005; 96374; 96375; 96376; G0378; J2270; J2405; J2765; J7030